=== PATIENT | male | born 1955 | race African-American/Black ===

== ENCOUNTER 2018-09-05 20:44 | Emergency (ER) | payer MEDICAID ==
[~2018-09-05] VITALS: Ht 172.7 cm; Wt 68.0 kg
[2018-09-05] MEDS ORDERED: MORPHINE SULFATE 4 MG/ML CPJ (NOT FOR IM USE) IV ONE (23:15)
[2018-09-05 23:34] LABS: HEMOGLOBIN 12.8 g/dL (14.0-18.0); MEAN CORPUSCULAR HEMOGLOBIN 26.5 pg (28.0-32.0); MEAN CORPUSCULAR VOLUME 80.6 fL (80.0-94.0); PLATELET 235 x1000/uL (130-400); RED BLOOD CELL COUNT 4.84 mill/uL (4.7-6.1); RED CELL DISTRIBUTION WIDTH 15.5 % (11.6-14.6)
[2018-09-05 23:35] LABS: CHLORIDE 99 mEq/L (98-107)
[2018-09-06 03:58] VITALS: BP 153/107
== END 2018-09-06 04:43 | disposition short-term general hospital (02) ==
LOC: ER 20:44
DX: S72.091A Other fracture of head and neck of right femur, initial encounter for closed fracture (principal); W01.0XXA Fall on same level from slipping, tripping and stumbling without subsequent striking against object, initial encounter; X58.XXXA Exposure to other specified factors, initial encounter; Y93.89 Activity, other specified; Y92.89 Other specified places as the place of occurrence of the external cause
CPT/HCPCS: 36415; 73502; 80048; 85027; 86850; 86900; 86901; 96374; 99285; J2270